=== PATIENT | male | born 1985 | race Caucasian/White ===

== ENCOUNTER → 2017-05-07 | Day surgery (SDC) | payer OTHER ==
[~2017-05-07] MED LIST: GLYCOPYRROLATE 1 MG/5 ML VIAL.; HYDROmorphone 2 MG/ML VIAL IV; LIDOCAINE 1% PF 2 ML VIAL. ID; LIDOCAINE 2% PF Vial for OR 5 ML VIAL.; MORPHINE SULFATE 2 MG/ML DISP.SYRIN. IV; ONDANSETRON PF 4 MG/2 ML VIAL. IV; PROCHLORPERAZINE 10 MG/2 ML VIAL. IV; PROPOFOL 40 ML IV; ePHEDrine PF IN SALINE 50 MG/5 ML DISP.SYRIN IV; fentaNYL PF VIAL 100 MCG/2 ML VIAL IV
[2017-05-07] MEDS: IV RINGERS,LACTATED 1000ML 1,000 ML IV (08:42)
== END | disposition home or self-care (01) ==
LOC: ENDOS 08:17
DX: K29.50 Unspecified chronic gastritis without bleeding (principal); T18.2XXA Foreign body in stomach, initial encounter; I10 Essential (primary) hypertension; F41.9 Anxiety disorder, unspecified; E66.9 Obesity, unspecified
CPT/HCPCS: 43235; 88305; J2704; J3490

== ENCOUNTER → 2017-05-22 | Outpatient (CLI) | payer OTHER ==
[2017-05-22] MEDS: IOHEXOL 300 MG/ML 100ML VIAL. IV ×2 (14:23)
== END | disposition home or self-care (01) ==
LOC: CT 12:35
DX: K50.90 Crohn's disease, unspecified, without complications (principal); K52.9 Noninfective gastroenteritis and colitis, unspecified
CPT/HCPCS: 74170; Q9967

== ENCOUNTER → 2018-05-27 | Day surgery (SDC) | payer OTHER ==
[~2018-05-27] MED LIST changes: -GLYCOPYRROLATE 1 MG/5 ML VIAL.; -HYDROmorphone 2 MG/ML VIAL IV; +HYDROmorphone 2 MG/ML VIAL IV PRN; +IV RINGERS,LACTATED 1000ML 1,000 ML IV SCH; -LIDOCAINE 1% PF 2 ML VIAL. ID; +LIDOCAINE 1% PF 2 ML VIAL. ID PRN; +LIDOCAINE 1% PF 2 ML VIAL. ONE; -LIDOCAINE 2% PF Vial for OR 5 ML VIAL.; +MIDAZOLAM HCL/PF 2 MG/2 ML VIAL. IV PRN; -MORPHINE SULFATE 2 MG/ML DISP.SYRIN. IV; +MORPHINE SULFATE 2 MG/ML VIAL. IV PRN; -ONDANSETRON PF 4 MG/2 ML VIAL. IV; +ONDANSETRON PF 4 MG/2 ML VIAL. IV PRN; -PROCHLORPERAZINE 10 MG/2 ML VIAL. IV; +PROCHLORPERAZINE 10 MG/2 ML VIAL. IV PRN; +PROPOFOL 20 ML IV ONE; -PROPOFOL 40 ML IV; +PROPOFOL 40 ML IV ONE; +VEDO300V IV; -ePHEDrine PF IN SALINE 50 MG/5 ML DISP.SYRIN IV; -fentaNYL PF VIAL 100 MCG/2 ML VIAL IV; +fentaNYL PF VIAL 100 MCG/2 ML VIAL IV PRN
[2018-05-27 11:45] VITALS: BP 96/54
--- NOTE | 2018-05-28 14:10 | PATHOLOGY ---
[facility] Accession Number: [id number] . 01 Material submitted: . PART A: TERMINAL ILEUM BIOPSY PART B: CECAL BIOPSY PART C: ASCENDING COLON BIOPSY PART D: TRANSVERSE COLON BIOPSY PART E: DESCENDING COLON BIOPSY PART F: RECTUM BIOPSY PART G: SIGMOID BIOPSY . 01 Clinical history: . Crohn's . 02 Diagnosis: A. Terminal ileum biopsy: - Segments of small intestine and colonic mucosa showing mild active chronic inflammation without granulomas or specific features. . B. Cecal biopsy: - Colonic mucosa showing no evidence of active chronic destructive colitis, dysplasia, or malignancy. . C. Ascending colon biopsy: - Colonic mucosa showing no evidence of active chronic destructive colitis, dysplasia, or malignancy. . D. Transverse colon biopsy: - Colonic mucosa showing no evidence of active chronic destructive colitis, dysplasia, or malignancy. . E. Descending colon biopsy: - Colonic mucosa showing no evidence of active chronic destructive colitis, dysplasia, or malignancy. . F. Rectal biopsy: - Rectal mucosa showing no evidence of active chronic destructive colitis, dysplasia, or malignancy. . G. Sigmoid colon biopsy: - Colonic mucosa showing no evidence of active chronic destructive colitis, dysplasia, or malignancy. LBQ/05/28/2018 . 02 Comment: Sections of the terminal ileum biopsy reveal segments of small bowel and colonic mucosa showing congestion and mild nonspecific chronic inflammation with a few scattered admixed neutrophils. There are no granulomas or specific features. Sections of the cecal, ascending colon, transverse colon, descending colon, sigmoid colon, and rectal biopsies appear similar and reveal segments of colorectal mucosa containing a few mucosal associated lymphoid aggregates. There is no evidence of a chronic destructive colitis, dysplasia, or malignancy. (JPM/db; 05/28/2018) . 02 Electronically signed: . Niels Rogers MD, Pathologist NPI- [id number] . 01 Gross description: . A. Received in formalin labeled "Kenny Mccarty, terminal ileum," are 2 segments of vilchis soft tissue measuring 0.9 x 0.3 x 0.2 cm in aggregate dimensions and ranging from 0.4 to 0.5 cm in maximum dimension. The specimen is submitted entirely in cassette A1. . B. Received in formalin labeled "Kenny Mccarty, cecal BX," are 2 segments of vilchis soft tissue measuring 1.2 x 0.1 x 0.1 cm in aggregate dimensions and ranging from 0.5 to 0.7 cm in maximum dimension. The specimen is submitted entirely in cassette B1. . C. Received in formalin labeled "Kenny Mccarty, ascending colon BX," are 2 segments of vilchis soft tissue measuring 0.9 x 0.2 x 0.1 cm in aggregate dimensions and ranging from 0.4 to 0.5 cm in maximum dimension. The specimen is submitted entirely in cassette C1. . D. Received in formalin labeled "Kenny Mccarty, transverse colon BX," are 5 segments of vilchis soft tissue measuring 1.0 x 0.8 x 0.1 cm in aggregate dimensions and ranging from 0.3 to 0.5 cm in maximum dimension. The specimen is submitted entirely in cassette D1. . E. Received in formalin labeled "Kenny Mccarty, descending colon BX," are 2 segments of vilchis soft tissue measuring 0.7 x 0.2 x 0.2 cm in aggregate dimensions and ranging from 0.3 to 0.4 cm in maximum dimension. The specimen is submitted entirely in cassette E1. . F. Received in formalin labeled "Kenny Mccarty, rectal BX," is a single segment of vilchis soft tissue measuring 0.4 cm in maximum dimension. The specimen is entirely submitted in cassette F1. . G. Received in formalin labeled "Kenny Mccarty, sigmoid BX," are 4 segments of vilchis soft tissue measuring 1.2 x 0.5 x 0.1 cm in aggregate dimensions and ranging from 0.3 to 0.5 cm in maximum dimension. The specimen is submitted entirely in cassette G1. (TSD; 05/27/2018) TOB/TOB . 02 Pathologist provided ICD-10: K52.9, K50.90 . 02 CPT . 038685, 767614, 640154, 385353, 621599, 289729, 017144 Specimen Comment: A courtesy copy of this report has been sent to Specimen Comment: [phone], . Specimen Comment: Report sent to / DR ESTRADA Specimen Comment: A duplicate report has been generated due to demographic updates. Performed at: 01 [facility] [address] [facility] [address], [place] [id number] MD Coy Sood MD Phone: [phone] Performed at: 02 [facility] [address] [place], [place] [id number] MD Niels Rogers MD Phone: [phone]
== END | disposition home or self-care (01) ==
LOC: ENDOS 09:40
PROVIDERS: ATTEND Internal Medicine Gastroenterology
DX: K63.2 Fistula of intestine (principal); K64.0 First degree hemorrhoids; K56.699 Other intestinal obstruction unspecified as to partial versus complete obstruction; E53.8 Deficiency of other specified B group vitamins; E55.9 Vitamin D deficiency, unspecified; Z82.3 Family history of stroke; Z82.49 Family history of ischemic heart disease and other diseases of the circulatory system; Z79.899 Other long term (current) drug therapy
CPT/HCPCS: 45380; 88305; J2704

== ENCOUNTER → 2020-04-30 | Outpatient (CLI) | payer OTHER ==
[2018-05-27 11:45] VITALS: BP 96/54
[~2020-04-30] MED LIST changes: +AZIT250T PO; +CHOL500050 PO; -HYDROmorphone 2 MG/ML VIAL IV PRN; -IV RINGERS,LACTATED 1000ML 1,000 ML IV SCH; -LIDOCAINE 1% PF 2 ML VIAL. ID PRN; -LIDOCAINE 1% PF 2 ML VIAL. ONE; +MECO10005 PO; -MIDAZOLAM HCL/PF 2 MG/2 ML VIAL. IV PRN; -MORPHINE SULFATE 2 MG/ML VIAL. IV PRN; -ONDANSETRON PF 4 MG/2 ML VIAL. IV PRN; +ORPH100T PO; -PROCHLORPERAZINE 10 MG/2 ML VIAL. IV PRN; -PROPOFOL 20 ML IV ONE; -PROPOFOL 40 ML IV ONE; -fentaNYL PF VIAL 100 MCG/2 ML VIAL IV PRN
== END ==
LOC: LAB 07:19
PROVIDERS: ATTEND Internal Medicine Gastroenterology
DX: Z01.812 Encounter for preprocedural laboratory examination (principal); K50.90 Crohn's disease, unspecified, without complications; Z20.828 Contact with and (suspected) exposure to other viral communicable diseases
CPT/HCPCS: U0003

== ENCOUNTER → 2020-05-03 | Day surgery (SDC) | payer OTHER ==
[~2020-05-03] MED LIST changes: -AZIT250T PO; +IV RINGERS,LACTATED 1000ML 1,000 ML IV SCH; +LIDOCAINE 2% PF 5 ML VIAL. ONE; +PROPOFOL 10 MG/ML (20ML) VIAL. IV ONE
[2020-05-03 10:15] VITALS: BP 124/65
--- NOTE | 2020-05-03 11:13 | PREOP HP ---
DATE OF SERVICE: 05/03/2020 REQUESTING PHYSICIAN: Dr. Florence. PRIMARY CARE PHYSICIAN: Dr. Florence. REASON FOR PROCEDURE: Crohn's disease. HISTORY OF PRESENT ILLNESS: This is a 34-year-old gentleman who presents today for colonoscopy. He has a history of Crohn's disease. PAST MEDICAL HISTORY: Crohn's. MEDICATIONS: MAR reviewed. It does include Entyvio for his Crohn's. FAMILY MEDICAL HISTORY: Significant for colon cancer in his mother. ALLERGIES: No known drug allergies. REVIEW OF SYSTEMS: A 13-point review of systems was done. It is positive as per HPI and otherwise negative. PHYSICAL EXAMINATION: VITAL SIGNS: He is afebrile. His vital signs are stable. GENERAL: He is a well-developed, well-nourished male, in no apparent distress. HEENT: His oropharynx is clear. CARDIOVASCULAR: S1, S2. LUNGS: Clear. ABDOMEN: Normoactive bowel sounds, soft, nontender, nondistended. EXTREMITIES: No edema. NEUROLOGIC: Awake, alert and oriented x 3. ASSESSMENT: Crohn's disease. PLAN: We will pursue upper endoscopy for further evaluation. The risks and benefits including bleeding, perforation, ____ and sedation were explained and he has agreed to proceed. Thank you for allowing me to participate in the care of this patient. BETTY ZEPEDA MD DR: CTARACHITA/ricki JOB#: [id number] / [id number]
--- NOTE | 2020-05-08 09:12 | PATHOLOGY ---
[facility] Accession Number: [id number] . 01 Material submitted: . PART A: cecum - CECUM BX PART B: gastrointestinal site - TERMINAL ILEUM PART C: colon - ASCENDING COLON. Modifiers: ascending PART D: colon - TRANSVERSE COLON. Modifiers: transverse PART E: colon - DESCENDING COLON. Modifiers: descending PART F: sigmoid colon - SIGMOID COLON PART G: rectum - RECTAL BX . 01 Clinical history: . Crohn's disease . 02 Diagnosis: A. Cecal biopsies: - Colonic mucosa showing no evidence of active chronic colitis, dysplasia, or malignancy. . B. Terminal ileum biopsies: - Small intestine mucosa showing focal mild active ileitis without granulomas or specific features. . C. Ascending colon biopsies: - Colonic mucosa showing no evidence of active chronic colitis, dysplasia or malignancy. . D. Transverse colon biopsies: - Colonic mucosa showing no evidence of active chronic colitis, dysplasia, or malignancy. . E. Descending colon biopsies: - Colonic mucosa showing no evidence of active chronic colitis, dysplasia, or malignancy. . F. Sigmoid colon biopsies: - Colonic mucosa showing no evidence of active chronic colitis, dysplasia, or malignancy. . G. Rectal biopsies: - Segments of rectal mucosa showing no evidence of active chronic colitis, dysplasia, or malignancy. . (JPM:mmmainor; 05/07/2020) [facility] 05/08/2020 0846 Local . 02 Comment: Sections of the terminal ileum biopsy reveal several segments of small intestine mucosa showing focal mild active inflammation without granulomas or specific features. . Sections of the cecum, ascending colon, transverse colon, descending colon, sigmoid colon, and rectal biopsies appear similar and reveal segments of colonic mucosa showing focal mucosal congestion and occasional foci of recent hemorrhage within the lamina propria. There is no evidence of an active chronic colitis, dysplasia, or malignancy. . (JPM:mml; 05/07/2020) . 02 Electronically signed: . Niels Rogers MD, Pathologist NPI- [id number] . 01 Gross description: . A. The specimen is received in formalin, labeled "Lul, Kenny, cecum BX" and consists of 2 fragments of pink-vilchis tissue measuring 0.2 x 0.1 cm and 0.8 x 0.2 cm which is entirely submitted in A1. . B. The specimen is received in formalin, labeled "Lul, Kenny, terminal ileum BX" and consists of 4 fragments of pink-vilchis tissue measuring between 0.3 x 0.2 cm and 0.4 x 0.2 cm which are entirely submitted in B1. . C. The specimen is received in formalin, labeled "Lul, Kenny, ascending colon BX" and consists of multiple fragments of vilchis tissue measuring 1.2 x 0.5 x 0.3 cm in aggregate which are entirely submitted in C1. . D. The specimen is received in formalin, labeled "Lul, Kenny, transverse colon BX" and consists of multiple fragments of vilchis tissue measuring 1.0 x 0.5 x 0.3 cm in aggregate which are entirely submitted in D1. . E. The specimen is received in formalin, labeled "Lul, Kenny, descending colon BX" and consists of 4 fragments of pink-vilchis tissue measuring 1.1 x 0.6 x 0.3 cm in aggregate which are entirely submitted in E1. . F. The specimen is received in formalin, labeled "Lul, Kenny, sigmoid colon BX" and consists of multiple fragments of vilchis tissue measuring 1.0 x 0.6 x 0.3 cm in aggregate which are entirely submitted in F1. . G. The specimen is received in formalin, labeled "Lul, Kenny, rectal BX" and consists of 4 fragments of pink-vilchis tissue measuring between 0.3 x 0.2 cm and 0.4 x 0.3 cm which are entirely submitted in G1. (SDY; 05/04/2020) SYU/SYU 05/04/2020 1744 Local . 02 Pathologist provided ICD-10: K52.9, K50.90 . 02 CPT . 936654, 545685, 226001, 514572, 206287, 596944, [id number] Specimen Comment: A courtesy copy of this report has been sent to [phone] Specimen Comment: Report sent to Performed at: [address] [facility], [place] [id number] MD Enzo Beth MD Phone: [phone] Performed at: 02 [facility] [address] [place], [place] [id number] MD Niels Rogers MD Phone: [phone]
== END | disposition home or self-care (01) ==
LOC: SURG 07:59
PROVIDERS: ATTEND Internal Medicine Gastroenterology
DX: K50.813 Crohn's disease of both small and large intestine with fistula (principal); K64.0 First degree hemorrhoids; K52.3 Indeterminate colitis; K63.89 Other specified diseases of intestine; I10 Essential (primary) hypertension; E66.9 Obesity, unspecified; F41.9 Anxiety disorder, unspecified; Z79.899 Other long term (current) drug therapy; Z98.890 Other specified postprocedural states; Z82.49 Family history of ischemic heart disease and other diseases of the circulatory system
CPT/HCPCS: 45380; 88305; J2704

== ENCOUNTER → 2020-05-06 | Outpatient (CLI) | payer OTHER ==
[2020-05-03 10:15] VITALS: BP 124/65
[~2020-05-06] MED LIST changes: +AZIT250T PO; -IV RINGERS,LACTATED 1000ML 1,000 ML IV SCH; -LIDOCAINE 2% PF 5 ML VIAL. ONE; -PROPOFOL 10 MG/ML (20ML) VIAL. IV ONE
== END ==
LOC: LAB 14:45
PROVIDERS: ATTEND Internal Medicine Pulmonary Disease
DX: U07.1 COVID-19 (principal); R05 Cough; R50.9 Fever, unspecified; R51.9 Headache, unspecified; M79.10 Myalgia, unspecified site; R68.89 Other general symptoms and signs
CPT/HCPCS: U0003

== ENCOUNTER 2020-05-07 05:33 | Emergency (ER) | payer OTHER ==
[~2020-05-07] VITALS: Ht 195.6 cm; Wt 125.0 kg
[~2020-05-07 05:33] MED LIST changes: -AZIT250T PO; -ORPH100T PO
[2020-05-07 05:40] VITALS: BP 154/78
[2020-05-07] MEDS ORDERED: ORPH100T PO (06:14)
[2020-05-07] MEDS ORDERED: IBUPROFEN 200 MG TABLET. PO ONE ×2 (06:14→06:30)
--- NOTE | 2020-05-07 06:14 | PHYS DOC ---
Past Medical History Past Medical History: Anxiety Additional Past Medical Histor: Crohns Past Surgical History: No Surgical History Smoking Status: Never Smoker Alcohol Use: None Drug Use: None General Adult EDM: Chief Complaint: NECK PAIN HPI: HPI: Patient is a 34 year old male presents with report of a "strong cough "that was followed by some tingling and tenderness to right subcapital region of neck and onto right shoulder. There was concerned that patient may have COVID-19 as he was tested yesterday and is isolating awaiting results. Patient reports she has been having fever, headache, and body aches. Patient did undergo a colonoscopy at [facility] on 05/03/2020. Reports initially had some abdominal discomfort but has since improved. Denies known sick contacts. 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 Reports last took some Tylenol and [id number]-kar-[id number] cold and cough medication at 2200 last night. Review of Systems: Review of Systems: Constitutional: Reports generalized malaise and subjective fever and chills Eyes: Denies redness or eye pain HENT: Denies nasal congestion or sore throat Respiratory: Reports cough; denies shortness of breath Cardiovascular: Denies chest pain or palpitations GI: Denies abdominal pain, nausea, or vomiting : Denies dysuria or hematuria Musculoskeletal: Denies back pain; reports neck pain Integument: Denies rash or skin lesions Neurologic: Denies headache, focal weakness or sensory changes Complete systems were reviewed and found to be within normal limits, except as documented in this note. Heart Score: Risk Factors: Allergies: Allergies: Allergies Coded Allergies Type Severity Reaction Last Updated Verified No Known Drug Allergies 05/03/20 No Physical Exam: PE: Constitutional: Well developed, well nourished, no acute distress, non-toxic appearance HENT: Normocephalic, atraumatic Eyes: PERRL, EOMI, conjunctiva normal, no discharge Neck: Normal range of motion, right subcapital paraspinal tenderness, supple, no meningeal signs Lungs & Thorax: No respiratory distress, equal chest rise and fall Abdomen: Soft, no tenderness, no guarding/rebound tenderness/distention Skin: Warm, dry, no erythema, no rash Extremities: No tenderness, ROM intact, no edema Neurologic: Alert and oriented X 3, normal motor function, normal sensory function, no focal deficits noted Psychologic: Affect normal, judgment normal Current Patient Data: Vital Signs: Vital Signs Date Time Temp Pulse Resp B/P (MAP) Pulse Ox O2 Delivery O2 Flow Rate FiO2 05/07/20 05:40 100.3 98 20 154/78 (103) 98 Room Air 100.3 EKG: EKG: [] Radiology/Procedures: Radiology/Procedures: [] Course & Med Decision Making: Course & Med Decision Making Patient presents with report of right-sided neck pain with history of recently being tested for COVID-19. Patient also having some headache, cough, body aches, and subjective fever and chills. Patient noted to have fever upon arrival. No meningeal signs appreciated. Patient neurologically intact. Denies any trauma. Reports pain occurred after "coughing hard ". Symptomatic treatment provided with oral steroid and fever addressed with ibuprofen. Prescription for muscle relaxers provided as patient is currently driving. Patient stable for discharge with outpatient follow-up with PCP. Discussed findings and plan with patient, who acknowledges understanding and agreement. Monique Disclaimer: Monique Disclaimer: This electronic medical record was generated, in whole or in part, using a voice recognition dictation system. Departure Departure Impression: Primary Impression: Cervical muscle strain Qualified Codes: S16.1XXA - Strain of muscle, fascia and tendon at neck level, initial encounter Additional Impressions: Suspected 2019 novel coronavirus infection Fever Qualified Codes: R50.9 - Fever, unspecified Disposition: 01 DC HOME SELF CARE/HOMELESS Condition: STABLE Referrals: MIGUEL ESTRADA MD (PCP) Patient Instructions: Cervical Strain and Sprain with Rehab-SportsMed, Fever, Adult, Wavm-pv-Ueun, Viral Syndrome Additional Instructions: You have been tested for or diagnosed with COVID-19. It is an infection caused by a new type of coronavirus. COVID-19 will cause cold-like or mild flu symptoms in most. It can cause more severe symptoms like problems breathing in some. There is no treatment for COVID-19. The body will clear the infection over time. Self-care will help to ease discomfort. Steps to Take: Self-Care Rest as needed. Healthy habits may help you feel better. Steps include: Choose healthy foods including fruits and vegetables. Drink water throughout the day. Get plenty of sleep each night. If you smoke, try to quit. It may ease breathing. Avoid alcohol. Keep Others Healthy The virus can spread to others. Droplets are released every time you sneeze or cough. The droplets can get into the mouth, nose, or eyes of people near you and lead to infection. To lower the chances of spreading COVID-19 to others: Stay at home until your doctor has said it is safe to leave. If you tested positive this will mean staying isolated until both of the following are true: At least 7 days have passed since the start of illness. You are free of fever for at least 72 hours without the use of medicine. During this time: - Avoid public areas, events, or transportation. Do not return to work or school until your doctor has said it is safe to do so. - Call ahead if you need to go to a medical center. Let them know you may have COVID-19. It will help them guide you where to go. They may also ask you to wear a facemask when you come to the office. - If you call for emergency medical services, let them know you may have COVID- 19. While at home: - Try to avoid close contact with others. Stay about 6 feet away. - If possible, spend most of your time in a separate room from others. - Use a face mask if you will be in close contact with others such as sharing a room or vehicle. - Have someone wipe down common surfaces in the home. Use household specialist managers every day on areas like doorknobs, counters, or sinks. - Cough or sneeze into a tissue. Throw the tissue away right after use. If a tissue is not available, cough or sneeze into your elbow. - Wash your hands often. Wash them after sneezing or coughing. Use soap and water and wash for at least 20 seconds. Alcohol based hand glass mould cleaner can be used if soap and water is not available. - Do not prepare food for others. Avoid sharing personal items like forks, spoons, or toothbrushes. - Avoid close contact with pets while you are sick. There is no evidence of the virus passing to pets. This is a safety step until more is known about this virus. Isolation can be frustrating. Social interaction can help. Keep in touch with friends and family through phone and tech options. You can still interact with others in your home, just keep a safe distance of about 6 feet. Follow-up: Your doctors office will check in with you to see if there are any changes in your health. You may be asked to keep track of symptoms to share with them. They will also let you know when you are clear to be in public again. Problems to Look Out For: Contact your doctor if your recovery is not going as you expect. Get emergency care if you have problems such as: - Trouble breathing - Nonstop chest pain or pressure - Changes in awareness, confusion, or problems waking - Lips or face have bluish color - Worsening of symptoms If you think you have an emergency, call for emergency medical services right away. As taken from [facility] Orphenadrine Citrate (ORPHENADRINE CITRATE) 100 Mg Tablet.er 100 MG PO BID PRN for MUSCLE PAIN, #14 TAB Prov: DANIEL RODRIGUEZ DO 05/07/20 DANIEL RODRIGUEZ DO May 07, 2020 06:14
[2020-05-07] MEDS ORDERED: DEXAMETHASONE 4 MG TABLET PO ONE (06:30)
--- NOTE | 2020-05-08 09:19 | NUR ---
IP: Informed pt of positive COVID test and the need to quarantine for 10 days from onset of symptoms. Pt verbalized understanding.
== END 2020-05-07 06:20 | disposition home or self-care (01) ==
LOC: ER 05:33
DX: S16.1XXA Strain of muscle, fascia and tendon at neck level, initial encounter (principal); M25.511 Pain in right shoulder; M79.10 Myalgia, unspecified site; X58.XXXA Exposure to other specified factors, initial encounter; Y93.89 Activity, other specified; Y92.89 Other specified places as the place of occurrence of the external cause; Y99.8 Other external cause status
CPT/HCPCS: 99283

== ENCOUNTER 2020-05-14 10:37 | Emergency (ER) | payer OTHER ==
[~2020-05-14] VITALS: Ht 195.6 cm; Wt 118.0 kg
[~2020-05-14 10:37] MED LIST changes: +ORPH100T PO
--- NOTE | 2020-05-14 11:12 | PHYS DOC ---
Past Medical History Past Medical History: Anxiety Additional Past Medical Histor: Crohns Past Surgical History: No Surgical History Smoking Status: Never Smoker Alcohol Use: None Drug Use: None General Adult EDM: Chief Complaint: SHORTNESS OF BREATH HPI: HPI: Patient is a 34 year old presents to the emergency department complaining of ongoing shortness of breath at night with intermittent fevers since being syed gnosed with the COVID-19 virus on 05/06/2020. Patient states he was seen here on May 07 and was given a shot of Decadron which he felt may have helped some. Patient states he is worried because his Covid symptoms are ongoing. Patient complains of decreased O2 saturation while sleeping, patient states that he does snore. Patient also complains of nonproductive cough. Patient states he has a history of Crohn's disease and receives monthly injections of Entyvio however states that he continues to have intermittent loose stools. Patient denies any chest pains, denies heart palpitations, denies abdominal pain, denies urinary tract infection type signs and symptoms. Patient denies generalized body aches however does state he has noticed a decreased in taste and smell. Patient states no one else living in his home is having the same symptoms as he. Patient denies cigarette smoking, denies drinking alcohol, denies illicit drug use. Review of Systems: Review of Systems: 14 body systems of review of systems have been reviewed. See HPI for pertinent positives and negative responses, otherwise all other systems are negative, nonpertinent or noncontributory. Heart Score: Risk Factors: Risk Factors: DM, Current or recent (<one month) smoker, HTN, HLP, family history of CAD, obesity. Risk Scores: Score 0 - 3: 2.5% MACE over next 6 weeks - Discharge Home Score 4 - 6: 20.3% MACE over next 6 weeks - Admit for Clinical Observation Score 7 - 10: 72.7% MACE over next 6 weeks - Early Invasive Strategies Allergies: Allergies: Allergies Coded Allergies Type Severity Reaction Last Updated Verified No Known Drug Allergies 05/03/20 No Physical Exam: PE: Constitutional: Well developed, well nourished, no acute distress, non-toxic appearance. HENT: Normocephalic, atraumatic, bilateral external ears normal, oropharynx moist, no oral exudates, nose normal. Eyes: PERRLA, EOMI, conjunctiva normal, no discharge. Neck: Normal range of motion, no tenderness, supple, no stridor. Cardiovascular:Heart rate regular rhythm, no murmur, heart sounds S1-S2 Lungs & Thorax: Bilateral breath sounds clear to auscultation all lung barr. Abdomen: Bowel sounds normal, soft, no tenderness, no masses, no pulsatile masses. Skin: Warm, dry, no erythema, no rash. Back: No tenderness, no CVA tenderness. Extremities: No tenderness, no cyanosis, no clubbing, ROM intact, no edema. Neurologic: Alert and oriented X 3, normal motor function, normal sensory function, no focal deficits noted. Psychologic: Affect normal, judgement normal, mood normal. Current Patient Data: Vital Signs: Vital Signs Date Time Temp Pulse Resp B/P (MAP) Pulse Ox O2 Delivery O2 Flow Rate FiO2 05/14/20 10:49 99.6 85 23 129/72 (91) 92 Room Air 99.6 EKG: EKG: [] Radiology/Procedures: Radiology/Procedures: : 1985 LOCATION: ER AGE: 34 SEX: M EXAM STATUS: REG ER ORD. PHYSICIAN: DANIEL CHAPARRO APRN REASON: COVID-19 +, SHORT OF BREATH PROCEDURE: CHEST AP ONLY XR CHEST 1V History: Reason: COVID-19 +, SHORT OF BREATH / Spl. Instructions: / History: Comparison: March 08, 2015 Findings: Ill-defined mid and bibasilar opacities. No pleural effusion. No pneumothorax. Normal heart size. Impression: 1. Subtle ill-defined mid and bibasilar opacities, may represent viral pneumonia given history. Electronically signed by: Chidi Wilburn DO (05/14/2020 11:30 AM) [id number] DICTATED and SIGNED BY: CHIDI WILBURN DO DATE: 05/14/20 [id number] Course & Med Decision Making: Course & Med Decision Making Pertinent Labs and Imaging studies reviewed. (See chart for details) 34-year-old male, vital signs reviewed, presents emergency department with complaints of ongoing COVID-19 virus symptoms. Physical examination was unremarkable, ED plan: Chest x-ray Chest x-ray interpreted by house radiologist bibasilar opacities consistent with viral pneumonia, ED plan will give patient 10 mg IM Decadron, sent home with prescription for Z-Ander, discussed findings with patient and ED planning, patient is amenable to IM Decadron and Z-Ander prescription, gave verbal understanding of home care, return to ER concerns, follow-up with primary care soon.. Monique Disclaimer: Monique Disclaimer: This electronic medical record was generated, in whole or in part, using a voice recognition dictation system. Departure Departure Impression: Primary Impression: Pneumonia due to COVID-19 virus Disposition: 01 DC HOME SELF CARE/HOMELESS Condition: GOOD Referrals: MIGUEL ESTRADA MD (PCP) Additional Instructions: Please take prescribed antibiotic as directed, follow-up with your primary care doctor soon, return to the emergency department for worsening symptoms or other concerns. EMERGENCY DEPARTMENT GENERAL DISCHARGE INSTRUCTIONS Thank you for coming to [facility] Emergency Department (ED) today and trusting us with you care. We trust that you had a positive experience in our Emergency Department. If you wish to speak to the department management, you may call the Director at [phone]. YOUR FOLLOW UP INSTRUCTIONS ARE FOLLOWS: 1. Do you have a private Doctor? If you do not have a private doctor, please ask for a resource list of physicians or clinics that may be able to assist you with follow up care. 2. The Emergency Physicain has interpreted your x-rays. The X-Ray specialist will also review them. If there is a change in the findings, you will be notified in 48 hours when at all possible. 3. A lab test or culture has been done, your results will be reviewed and you will be notified if you need a change in treatment. ADDITIONAL INSTRUCTIONS AND INFORMATION: 1. Your care today has been supervised by a physician who is specially trained in emergency care. Many problems require more than one evaluation for a complete diagnosis and treatment. We recommend that you schedule your follow up appointment as recommended to ensure complete treatment of you illness or injury. If you are unable to obtain follow up care and continue to have a problem, or if your condition worsens, we recommend that you return to the ED. 2. We are not able to safely determine your condition over the phone nor are we able to give sound medical advice over the phone. For these safety reasons, if you call for medical advice we will ask you to come to the ED for further evaluation. 3. If you have any questions regarding these discharge instructions please call the ED at [phone]. SAFETY INFORMATION: In the interest of safety, wellness, and injury prevention; we encourage you to wear your sealbelt, if you smoke; quite smoking, and we encourage family to use a protective helmet for bicycling and other sporting events that present an increased risk for head injury. IF YOUR SYMPTOMS WORSEN OR NEW SYMPTOMS DEVELOP, OR YOU HAVE CONCERNS ABOUT YOUR CONDITION; OR IF YOUR CONDITION WORSENS WHILE YOU ARE WAITING FOR YOUR FOLLOW UP APPOINTMENT; EITHER CONTACT YOUR PRIMARY CARE DOCTOR, THE PHYSICIAN WHOSE NAME AND NUMBER YOU WERE GIVEN, OR RETURN TO THE ED IMMEDIATELY. You have been tested for or diagnosed with COVID-19. It is an infection caused by a new type of coronavirus. COVID-19 will cause cold-like or mild flu symptoms in most. It can cause more severe symptoms like problems breathing in some. There is no treatment for COVID-19. The body will clear the infection over time. Self-care will help to ease discomfort. Steps to Take: Self-Care Rest as needed. Healthy habits may help you feel better. Steps include: Choose healthy foods including fruits and vegetables. Drink water throughout the day. Get plenty of sleep each night. If you smoke, try to quit. It may ease breathing. Avoid alcohol. Keep Others Healthy The virus can spread to others. Droplets are released every time you sneeze or cough. The droplets can get into the mouth, nose, or eyes of people near you and lead to infection. To lower the chances of spreading COVID-19 to others: Stay at home until your doctor has said it is safe to leave. If you tested positive this will mean staying isolated until both of the following are true: At least 7 days have passed since the start of illness. You are free of fever for at least 72 hours without the use of medicine. During this time: - Avoid public areas, events, or transportation. Do not return to work or school until your doctor has said it is safe to do so. - Call ahead if you need to go to a medical center. Let them know you may have COVID-19. It will help them guide you where to go. They may also ask you to wear a facemask when you come to the office. - If you call for emergency medical services, let them know you may have COVID- 19. While at home: - Try to avoid close contact with others. Stay about 6 feet away. - If possible, spend most of your time in a separate room from others. - Use a face mask if you will be in close contact with others such as sharing a room or vehicle. - Have someone wipe down common surfaces in the home. Use household criminal justice department chair every day on areas like doorknobs, counters, or sinks. - Cough or sneeze into a tissue. Throw the tissue away right after use. If a tissue is not available, cough or sneeze into your elbow. - Wash your hands often. Wash them after sneezing or coughing. Use soap and water and wash for at least 20 seconds. Alcohol based hand lamp cleaner can be used if soap and water is not available. - Do not prepare food for others. Avoid sharing personal items like forks, spoons, or toothbrushes. - Avoid close contact with pets while you are sick. There is no evidence of the virus passing to pets. This is a safety step until more is known about this virus. Isolation can be frustrating. Social interaction can help. Keep in touch with friends and family through phone and tech options. You can still interact with others in your home, just keep a safe distance of about 6 feet. Follow-up: Your doctors office will check in with you to see if there are any changes in your health. You may be asked to keep track of symptoms to share with them. They will also let you know when you are clear to be in public again. Problems to Look Out For: Contact your doctor if your recovery is not going as you expect. Get emergency care if you have problems such as: - Trouble breathing - Nonstop chest pain or pressure - Changes in awareness, confusion, or problems waking - Lips or face have bluish color - Worsening of symptoms If you think you have an emergency, call for emergency medical services right away. As taken from [facility] Azithromycin (ZITHROMAX) 250 Mg Tablet 1 PKG PO UD for PNEUMONIA, #1 PKG 0 Refills Prov: DANIEL CHAPARRO WAGON PERSON 05/14/20 DANIEL CHAPARRO WAGON PERSON May 14, 2020 11:12
--- NOTE | 2020-05-14 11:33 | RAD ---
XR CHEST 1V History: Reason: COVID-19 +, SHORT OF BREATH / Spl. Instructions: / History: Comparison: March 08, 2015 Findings: Ill-defined mid and bibasilar opacities. No pleural effusion. No pneumothorax. Normal heart size. Impression: 1. Subtle ill-defined mid and bibasilar opacities, may represent viral pneumonia given history. Electronically signed by: Chidi Wilburn DO (05/14/2020 11:30 AM) [id number]
[2020-05-14] MEDS ORDERED: AZIT250T PO (11:52)
[2020-05-14] MEDS ORDERED: DEXAMETHASONE SOD PHOS 20 MG/5 ML VIAL. IM ONE (12:00)
[2020-05-14 12:49] VITALS: BP 115/69
--- NOTE | 2020-05-15 16:11 | EKG ---
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
--- NOTE | 2020-05-17 11:33 | EKG ---
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
== END 2020-05-14 12:54 | disposition home or self-care (01) ==
LOC: ER 10:37
DX: U07.1 COVID-19 (principal); J12.82 Pneumonia due to coronavirus disease 2019; R06.02 Shortness of breath; R50.9 Fever, unspecified; F41.9 Anxiety disorder, unspecified
CPT/HCPCS: 71045; 93005; 96372; 99285; J1100